=== PATIENT | female | born 1990 | race Caucasian/White ===

== ENCOUNTER 2018-12-22 16:11 | Emergency (ER) | payer OTHER, MEDICAID ==
[~2018-12-22] VITALS: Ht 162.6 cm; Wt 47.6 kg
[~2018-12-22 16:11] MED LIST: ACETAMINOPHEN-1 EAC1 PO; BACTRIM DS TAB1 EACH PO; CLEOCIN HCL150 MG PO; CRANBERRY300 MG PO; FISH OIL 1,001000 M2 PO; NAPROSYN500 MG PO; NOHOMEMEDICATIONS; NORFLEX100 MG PO; PENICILLIN V P500 MG PO; ULTRAM 50MG TAB50 MG PO; VITAMINC500 PO
[2018-12-22] MEDS ORDERED: UNICOMPLEX M TA1 TA1 PO (16:20)
[2018-12-22] MEDS ORDERED: NAPROSYN500 MG PO (16:51)
[2018-12-22] MEDS ORDERED: TRAMADOL 50 MG50 MG PO (16:51)
[2018-12-22] MEDS ORDERED: AMOXICILLIN 50500 MG PO (16:51)
[2018-12-22 16:56] VITALS: BP 103/75
== END 2018-12-22 16:56 | disposition home or self-care (01) ==
LOC: M.ERS 16:11
DX: K02.9 Dental caries, unspecified (principal)

== ENCOUNTER 2020-05-22 15:06 | Emergency (ER) | payer OTHER, MEDICAID ==
[~2020-05-22] VITALS: Ht 162.6 cm; Wt 49.9 kg
[~2020-05-22 15:06] MED LIST changes: +AMOXICILLIN 50500 MG PO; +TRAMADOL 50 MG50 MG PO; +UNICOMPLEX M TA1 TA1 PO
[2020-05-22] MEDS ORDERED: LIDOCAINE VISC100 ML SWISH&SPIT (15:44)
[2020-05-22] MEDS ORDERED: AMOXICILLIN 50500 MG PO (15:44)
[2020-05-22 16:02] VITALS: BP 122/84
== END 2020-05-22 16:03 | disposition home or self-care (01) ==
LOC: M.ERS 15:06
DX: K04.7 Periapical abscess without sinus (principal); F17.210 Nicotine dependence, cigarettes, uncomplicated

== ENCOUNTER 2020-11-11 14:58 | Emergency (ER) | payer OTHER, MEDICAID ==
[~2020-11-11] VITALS: Ht 167.6 cm; Wt 54.4 kg
[~2020-11-11 14:58] MED LIST changes: +LIDOCAINE VISC100 ML SWISH&SPIT
[2020-11-11] MEDS ORDERED: HYDROCODON-ACE1 EAC7 PO (15:33)
[2020-11-11] MEDS ORDERED: AMOXICILLIN 50500 MG PO (15:33)
[2020-11-11 15:46] VITALS: BP 117/73
== END 2020-11-11 15:49 | disposition home or self-care (01) ==
LOC: M.ERS 14:58
DX: K12.2 Cellulitis and abscess of mouth (principal)